=== PATIENT | male | born 1975 | race Caucasian/White ===

== ENCOUNTER 2017-09-02 14:54 | Observation (INO) | payer OTHER ==
[2017-09-02] MEDS ORDERED: IBUPROFEN 600 MG TABLET (FP) PO ONE ×2 (15:57→16:13)
--- NOTE | 2017-09-02 16:03 | PDOC ---
History of Present Illness - General Chief Complaint: Chest Pain Stated Complaint: CHEST PAIN Time Seen by Provider: 09/02/17 15:40 History Source: Patient Exam Limitations: No Limitations - History of Present Illness Initial Comments: 09/02/17 15:59 The patient is a 42M with no PMH (does not f/u with a PCP) who presents to the ER with complaints of chest pain. The patient states that he's had 2 weeks of intermittent, atraumatic, CP which is sharp in nature not changed by foods, breathing, or positioning. The pain is located in his L anterior chest, nonradiating. He denies incarceration, recent travel, and sick contacts. He admits to a cough, SOB when laying down at night, night sweats, and chills. He denies fever, abdominal pain. Past History - Past Medical History Allergies/Adverse Reactions: Allergies Allergy/AdvReac Type Severity Reaction Status Date / Time No Known Allergies Allergy Verified 09/02/17 15:10 Home Medications: Ambulatory Orders NK [No Known Home Medication] 09/02/17 COPD: No Other medical history: Pt denies - Suicide/Smoking/Psychosocial Hx Smoking History: Current every day smoker Have you smoked in the past 12 months: Yes Number of Cigarettes Smoked Daily: 10 Information on smoking cessation initiated: No Hx Alcohol Use: No Drug/Substance Use Hx: No Substance Use Type: Alcohol Review of Systems - Review of Systems Able to Perform ROS?: Yes Comments:: 09/02/17 16:08 GENERAL/CONSTITUTIONAL: Positive for chills and night sweats. No fevers. No weakness. HEAD, EYES, EARS, NOSE AND THROAT: No change in vision. No ear pain or discharge. No sore throat. CARDIOVASCULAR: Positive for chest pain. No palpitations or lightheadedness. RESPIRATORY: Positive for cough and PND. No cough, wheezing, or hemoptysis. GASTROINTESTINAL: Positive for mild nausea. No vomiting, diarrhea, constipation , or abdominal pain. GENITOURINARY: No dysuria, frequency, hematuria, or change in urination. MUSCULOSKELETAL: No joint or muscle swelling or pain. No neck or back pain. SKIN: No rash or lesions. NEUROLOGIC: No headache, numbness, tingling, weakness, loss of consciousness, or change in strength/sensation. ENDOCRINE: No increased thirst. No abnormal weight change. HEMATOLOGIC/LYMPHATIC: No anemia, easy bleeding, or history of blood clots. ALLERGIC/IMMUNOLOGIC: No hives or skin allergy. Is the patient limited Arabic proficient: No *Physical Exam - Vital Signs Last Vital Signs Temp Pulse Resp BP Pulse Ox 98.4 F 55 L 18 149/91 99 09/02/17 15:10 09/02/17 15:10 09/02/17 15:10 09/02/17 15:10 09/02/17 15:10 - Physical Exam Comments: 09/02/17 16:09 GENERAL: Well developed, well nourished. Awake and alert. No acute distress. HEENT: Normocephalic, atraumatic. Hearing grossly normal. Moist mucous membranes. PERRLA, EOMI. No conjunctival pallor. Sclera are non-icteric. NECK: Supple. Full ROM. No JVD. CARDIOVASCULAR: TTP over L anterior chest. Regular rate and rhythm. No murmurs, rubs, or gallops. PULMONARY: No evidence of respiratory distress. Lungs clear to auscultation bilaterally. No wheezing, rales or rhonchi. ABDOMINAL: Soft. Non-tender. Non-distended. No rebound or guarding. GENITOURINARY: No CVA tenderness bilaterally. MUSCULOSKELETAL: Normal range of motion at all joints. No bony deformities or tenderness. EXTREMITIES: No cyanosis. No clubbing. No edema. No calf tenderness or swelling. SKIN: Warm and dry. Normal capillary refill. No rashes. No jaundice. NEUROLOGICAL: Alert, awake, appropriate. Cranial nerves 2-12 intact. Normal speech. Gait is normal without ataxia. PSYCHIATRIC: Cooperative. Good eye contact. Appropriate mood and affect. Heart Score/ECG Review #1 General ECG Interpretation: Sinus Rhythm, Normal Rate, Normal Intervals, No acute ischemic changes Compared to previous ECG there are: Previous ECG unavail 09/02/17 16:10 NSR vent rate 60 WI 178 QRS 92 QTc 424 No STD or GARY No signs of acute ischemia S waves noted to be exaggerated in V2 and V3 ED Treatment Course - LABORATORY CBC & Chemistry Diagram: 09/02/17 16:05 09/02/17 16:05 - RADIOLOGY Radiology Studies Ordered: Category Date Time Status CHEST PA & LAT [RAD] Stat Radiology 09/02/17 15:57 Ordered Medical Decision Making - Medical Decision Making 07/19/18 16:11 The patient is a 42M with no PMH, does not have a PMD, who presents to the ER with reproducible CP, night sweats, and chills. He denies any sick contacts but admits to a cough and malaise. I am concerned about an infectious process. Will r/o ACS with ekg and troponin. Pending labs and imaging. 09/02/17 17:39 I have endorsed the pt to Dr. Sandy for admission. Will place order for CT chest. Trop negative. CBC and CMP WNL. *DC/Admit/Observation/Transfer Diagnosis at time of Disposition: Chest pain Qualifiers: Chest pain type: other chest pain Qualified Code(s): R07.89 - Other chest pain ; R07.8 - Other chest pain - Discharge Dispostion Condition at time of disposition: Guarded Decision to Admit order: Yes - Referrals - Patient Instructions - Post Discharge Activity
--- NOTE | 2017-09-02 16:16 | PDOC ---
Attending Attestation - HPI HPI: 09/02/17 17:29 The patient is a 42 year old male with no significant past medical history who presents to the ED complaining of approximately 2 weeks of L sided chest pain that is sharp, intermittent, and associated with shortness of breath, nausea, and diaphoresis. Denies fever or chills. Denies headache, blurred vision, numbness or tingling. Does not follow with PMD - Physicial Exam PE: 09/02/17 17:31 Constitutional: Awake, alert, oriented. No acute distress. Head: Normocephalic. Atraumatic Eyes: PERRL. EOMI. Conjunctivae are not pale. ENT: Mucous membranes are moist and intact. Posterior pharynx without exudates or erythema. Uvula midline. Neck: Supple. Full ROM. No lymphadenopathy. Cardiovascular: Regular rate. Regular rhythm. S1, S2 regular. Distal pulses are 2+ and symmetric. Pulmonary/Chest: No evidence of respiratory distress. Clear to auscultation bilaterally No wheezing, rales or rhonchi. Abdominal: Soft and non-distended. There is no tenderness. No rebound, guarding or rigidity. No organomegaly. No palpable masses. Good bowel sounds. Back: No CVA tenderness. Musculoskeletal: No edema. No cyanosis. No clubbing. Full range of motion in all extremities. Nocalf tenderness. Radial/pedal pulses are intact and 2+ bilaterally Skin: Skin is warm and dry. No petechiae. No purpura. Neurological: Alert and oriented to person, place, and time. Cranial nerves II -XII are grossly intact. Normal speech. Strength is grossly symmetric. No sensory deficits. Psychiatric: Good eye contact. Normal interaction, affect and behavior. Documentation prepared by Kellie Torres, acting as medical facilities section director for Tara Ruth DO. <Kellie Torres - Last Filed: 09/02/17 17:29> - Resident Resident Name: Jase Valenzuela - ED Attending Attestation I have performed the following: I have examined & evaluated the patient, The case was reviewed & discussed with the resident, I agree w/resident's findings & plan, Exceptions are as noted - Medical Decision Making 09/02/17 16:16 I, Dr. Tara Ruth DO, attest that this document has been prepared under my direction and personally reviewed by me in its entirety. I further attest, that it accurately reflects all work, treatment, procedures and medical decision -making performed by me. 09/02/17 17:43 a/p: 42yo male with intermittent cp assoc with sob/diaphoresis/nausea -concerning for acs -will send labs -trop -ekg -asa -also with nonproductive cough -no pleuritic component -will keep in obs overnight 09/02/17 19:55 resident discussed case with christianne who accepts pt to service <Tara uRth - Last Filed: 09/02/17 19:56> Heart Score/ECG Review - ECG Intrepretation Comment:: 09/02/17 16:24 sinus at 62, nl axis, nl interval, no acute st/t wave findings <Tara Ruth - Last Filed: 09/02/17 19:56>
[2017-09-02 16:21] LABS: BASO % 0.9 % (0-2.0); EOS % 0.9 % (0-4.5); HEMOGLOBIN 14.8 GM/dL (11.7-16.9); LYMPH % 20.2 % (8-40); MCH 32.7 pg (25.7-33.7); MCHC 35.2 g/dl (32.0-35.9); MEAN CELL VOLUME 92.9 fl (80-96); MEAN PLT VOLUME 9.1 fl (7.5-11.1); MONO % 6.7 % (3.8-10.2); NEUT % 71.3 % (42.8-82.8); PLATELET COUNT 194 K/MM3 (134-434); RBC 4.52 M/mm3 (4.00-5.60); RDW 13.2 % (11.9-15.9)
[2017-09-02 16:26] LABS: INR 0.97 (0.82-1.09)
[2017-09-02 16:36] LABS: ALBUMIN 4.2 g/dl (3.4-5.0); ANION GAP 9 (8-16); BILIRUBIN,TOTAL 1.4 mg/dL (0.2-1.0); BLOOD UREA NITROGEN 12 mg/dL (7-18); CALCIUM 8.9 mg/dL (8.5-10.1); CHLORIDE 108 mmol/L (98-107); CO2 24 mmol/L (21-32); CREATININE 0.8 mg/dL (0.7-1.3); GLUCOSE,RANDOM 91 mg/dL (74-106); POTASSIUM 3.9 mmol/L (3.5-5.1); SGOT/AST 40 U/L (15-37); SGPT/ALT 55 U/L (12-78); SODIUM 141 mmol/L (136-145)
[2017-09-02 16:38] LABS: ALK PHOS 99 U/L (45-117)
[2017-09-02] MEDS ORDERED: ASPIRIN COATED 81 MG TABLET.EC PO ONE (17:28)
--- NOTE | 2017-09-02 18:22 | HP ---
Admitting History and Physical - Primary Care Physician PCP: None - Admission Chief Complaint: Chest pain History of Present Illness: 42 yo M w/ no significant medical history p/w chest pain x 2 weeks. Pain is located upper L chest, reproducible, worse with sitting up, 8/10, sharp, non- radiating, intermittent, a/w intermittent non-productive cough and shortness of breath both exertional and w/ the pain. Denies sweating, dizziness, focal weakness, abd pain, headache, n/v, fever, chills, weight loss, night sweat, sick contact, travel. History Source: Patient Limitations to Obtaining History: No Limitations - Smoking History Smoking history: Current every day smoker Have you smoked in the past 12 months: Yes Aproximately how many cigarettes per day: 10 - Alcohol/Substance Use Hx Alcohol Use: No Home Medications - Allergies Allergies/Adverse Reactions: Allergies Allergy/AdvReac Type Severity Reaction Status Date / Time No Known Allergies Allergy Verified 09/02/17 15:10 - Home Medications Home Medications: Ambulatory Orders NK [No Known Home Medication] 09/02/17 Review of Systems - Review of Systems Constitutional: denies: Chills, Fever, Loss of Appetite, Night Sweats, Unintentional Wgt. Loss, Weakness HENT: reports: No Symptoms Neck: reports: No Symptoms Cardiovascular: reports: Chest Pain, Shortness of Breath. denies: Palpitations Respiratory: reports: Cough, SOB on Exertion Gastrointestinal: reports: No Symptoms Genitourinary: reports: No Symptoms Musculoskeletal: reports: No Symptoms Integumentary: reports: No Symptoms Neurological: reports: No Symptoms Endocrine: reports: No Symptoms Hematology/Lymphatic: reports: No Symptoms Psychiatric: reports: No Symptoms Physical Examination Vital Signs: Vital Signs Temperature 98.4 F 09/02/17 15:10 Pulse Rate 55 L 09/02/17 15:10 Respiratory Rate 18 09/02/17 15:10 Blood Pressure 149/91 09/02/17 15:10 O2 Sat by Pulse Oximetry (%) 99 09/02/17 15:10 Constitutional: Yes: Well Nourished, No Distress, Calm Eyes: Yes: Conjunctiva Clear, EOM Intact HENT: Yes: Atraumatic, Normocephalic Neck: Yes: Supple, Trachea Midline Cardiovascular: Yes: Regular Rate and Rhythm, S1, S2. No: Bruit, JVD, Gallop, Murmur, Rub Respiratory: Yes: CTA Bilaterally Gastrointestinal: Yes: Normal Bowel Sounds, Soft. No: Distention, Tenderness Extremities: No: Erythema Edema: No Peripheral Pulses WNL: Yes Neurological: Yes: Alert, Oriented, Cran Nerves II-XII Intact Labs: CBC, BMP 09/02/17 16:05 09/02/17 16:05 Imaging - Results X-ray: Report Reviewed, Image Reviewed Assessment/Plan 42 yo M admitted for atypical chest pain Atypical chest pain, r/o ACS - Heart score 1, cardiac cause less likely - negative trop x 1, will trend - normal EKG, will repeat - ECHO dvt ppx: lovenox dispo: d/c if ECHO negative Blas Bowen PGY3 [phone] Visit type - Emergency Visit Emergency Visit: Yes Care time: The patient presented to the Emergency Department on the above date and was hospitalized for further evaluation of their emergent condition. - New Patient This patient is new to me today: Yes Date on this admission: 09/02/17 - Critical Care Critical Care patient: No Hospitalist Screening - Colonoscopy Questionnaire Colonoscopy Questionnaire: Colonoscopy Questionnaire - Patient: 50 - 75 years old and never had a screening colonoscopy: Unknown History of colon or rectal polyps, or CA: Unknown History of IBD, Crohn's disease or UC: Unknown History of abdominal radiation therapy as a child: Unknown - Relative: 1 with colon or rectal CA, or polyps at age 60 or younger: Unknown Colon or rectal CA diagnosed at age 45 or younger: Unknown Multiple relatives with colon or rectal CA: Unknown - Outcome: Screening Result: Negative Screen
[2017-09-02] MEDS ORDERED: ASPIRIN COATED 81 MG TABLET.EC ONE ×2 (18:27→18:28)
--- NOTE | 2017-09-02 18:30 | PN ---
Teaching Attending Note Name of Resident: Blas Bowen ATTENDING PHYSICIAN STATEMENT I saw and evaluated the patient. I reviewed the resident's note and discussed the case with the resident. I agree with the resident's findings and plan as documented with exceptions below. SUBJECTIVE: 42 yom from [place], immigrated 2 years ago, not seen a doctor since, comes with 15 days of left sided chest pain, tender to touch, squeezing, constant, waxing and waning, with no clear exacerbating or relieving factors, but occasionally worse when unable to 'catch his breath'. No fevers, chills, radiation to arm, jaw or neck. Denies any cough, hemoptysis, weight loss (rather has gained weight ), night sweats, exertional chest pain or dyspnea, recent travel, family history of clots or CAD. Currently unchanged symptoms, reports hurts when presses on chest on but no change with movements. 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 12 point ROS done, neg otherwise. OBJECTIVE: Vital Signs Period Temp Pulse Resp BP Sys/Dinh Pulse Ox Last 24 Hr 98.4 F 55 18 149/91 99 Intake & Output 08/30/17 08/31/17 09/01/17 09/02/17 23:59 23:59 23:59 23:59 Weight 185 lb GENERAL: Awake, alert, and fully oriented, in no acute distress. HEAD: Normal with no signs of trauma. EYES: Pupils equal, round and reactive to light, extraocular movements intact, sclera anicteric, conjunctiva clear. No lid lag. EARS, NOSE, THROAT: Ears normal, nares patent, oropharynx clear without exudates. Moist mucous membranes. NECK: Normal range of motion, supple without lymphadenopathy, JVD, or masses. LUNGS: Breath sounds equal, clear to auscultation bilaterally. No wheezes, and no crackles. No accessory muscle use. Left sided chest wall tenderness with no swelling/erythema/crepitus HEART: Regular rate and rhythm, normal S1 and S2 without murmur, rub or gallop. ABDOMEN: Soft, nontender, not distended, normoactive bowel sounds, no guarding, no rebound, no masses. No voluntary or involuntary guarding or rigidity. MUSCULOSKELETAL: Normal range of motion at all joints. No bony deformities or tenderness. No CVA tenderness. UPPER EXTREMITIES: 2+ pulses, warm, well-perfused. No cyanosis. No clubbing. No peripheral edema. LOWER EXTREMITIES: 2+ pulses, warm, well-perfused. No calf tenderness. No peripheral edema. NEUROLOGICAL: Cranial nerves II-XII intact. Normal speech. Normal gait. PSYCHIATRIC: Cooperative. Good eye contact. Appropriate mood and affect. SKIN: Warm, dry, normal turgor, no rashes or lesions noted, normal capillary refill. Active Medications Enoxaparin Sodium (Lovenox -) 40 mg SQ DAILY IDANIA Laboratory Results - last 24 hr 09/02/17 09/02/17 09/02/17 16:05 16:05 16:05 WBC 6.0 RBC 4.52 Hgb 14.8 Hct 42.0 MCV 92.9 MCH 32.7 MCHC 35.2 RDW 13.2 Plt Count 194 MPV 9.1 Absolute Neuts (auto) 4.3 Neutrophils % 71.3 Lymphocytes % 20.2 Monocytes % 6.7 Eosinophils % 0.9 Basophils % 0.9 Nucleated RBC % 0 PT with INR 11.00 INR 0.97 Sodium 141 Potassium 3.9 Chloride 108 H Carbon Dioxide 24 Anion Gap 9 BUN 12 Creatinine 0.8 Creat Clearance w eGFR > 60 Random Glucose 91 Calcium 8.9 Total Bilirubin 1.4 H AST 40 H ALT 55 Alkaline Phosphatase 99 Creatine Kinase 273 Creatine Kinase Index 1.2 CK-MB (CK-2) 3.34 Troponin I < 0.02 B-Natriuretic Peptide Total Protein 8.0 Albumin 4.2 09/02/17 16:05 WBC RBC Hgb Hct MCV MCH MCHC RDW Plt Count MPV Absolute Neuts (auto) Neutrophils % Lymphocytes % Monocytes % Eosinophils % Basophils % Nucleated RBC % PT with INR INR Sodium Potassium Chloride Carbon Dioxide Anion Gap BUN Creatinine Creat Clearance w eGFR Random Glucose Calcium Total Bilirubin AST ALT Alkaline Phosphatase Creatine Kinase Creatine Kinase Index CK-MB (CK-2) Troponin I B-Natriuretic Peptide 6.62 Total Protein Albumin EKG NSR, Q in III CXR no acute process ASSESSMENT AND PLAN: 42 yom with atypical left sided chest pain. -Atypical left sided chest pain, musculoskeletal high on differential given tenderness to touch and occupation involving lifting heavy weights, low suspicion for ACS, unlikely PE given character of pain and lack of tachycardia/ hypoxia/pleuritic symptoms or risk factors, no clincal markers or concerns for TB or infectious process Plan; telemetry, repeat trop. 2D echo. CT chest to assess pulmonary parenchyma, additional w/u if any concerns noted. Trial with Tylenol/NSAIDs Lipid panel, A1c, DVTPPX, low risk dispo d/c in 24 hours if w/u unrevealing and no concerns. Admit to obs. Plan discussed with patient in detail, all questions answered. patient in agreement with plan. Total admit time 55 min.
[2017-09-02] MEDS ORDERED: IBUPROFEN 400 MG TABLET (FP) PO PRN (18:36)
[2017-09-02] MEDS ORDERED: ACETAMINOPHEN 325 MG TABLET (FP) PO PRN (18:40)
[2017-09-02 20:39] VITALS: BMI 31.0
[2017-09-03 06:26] LABS: BASO % 0.8 % (0-2.0); EOS % 2.6 % (0-4.5); HEMATOCRIT 41.4 % (35.4-49); HEMOGLOBIN 14.8 GM/dL (11.7-16.9); MCH 33.2 pg (25.7-33.7); MCHC 35.7 g/dl (32.0-35.9); MEAN PLT VOLUME 8.9 fl (7.5-11.1); MONO % 7.9 % (3.8-10.2); NEUT % 59.7 % (42.8-82.8); PLATELET COUNT 184 K/MM3 (134-434); RBC 4.46 M/mm3 (4.00-5.60); RDW 13.1 % (11.9-15.9); WHITE BLOOD COUNT 5.6 K/mm3 (4.0-10.0)
[2017-09-03 07:04] LABS: ANION GAP 9 (8-16); BLOOD UREA NITROGEN 14 mg/dL (7-18); CALCIUM 8.5 mg/dL (8.5-10.1); CHLORIDE 108 mmol/L (98-107); CO2 25 mmol/L (21-32); CREATININE 0.7 mg/dL (0.7-1.3); GLUCOSE,RANDOM 80 mg/dL (74-106); POTASSIUM 3.8 mmol/L (3.5-5.1); SODIUM 142 mmol/L (136-145)
[2017-09-03 07:06] LABS: MAGNESIUM 2.3 mg/dL (1.8-2.4); PHOSPHOROUS 3.6 mg/dL (2.5-4.9)
[2017-09-03 07:33] LABS: ALBUMIN 3.7 g/dl (3.4-5.0); BILIRUBIN,DIRECT 0.4 mg/dL (0.0-0.2); BILIRUBIN,TOTAL 1.7 mg/dL (0.2-1.0); TOT PROT 7.1 g/dl (6.4-8.2)
[2017-09-03] MEDS ORDERED: ENOXAPARIN NA (PORCINE) 40 MG/0.4 ML DISP.SYRIN SQ SCH (10:00)
--- NOTE | 2017-09-03 11:58 | ECHO ---
Name: MISHA SORIA Study Date: 09/03/2017 10:52 AM Age: 42 yrs Reason For Study: chest pain Height: 66 in Weight: 185 lb BSA IVSd 1.1cm Ao root diam 3.4cm LVIDd 5.2cm LA dimension 3.9c m LVIDs 3.2cm LVPWd 0.82cm EDVPastora) 128.9ml TAPSE 1.5cm ESV(Kathe) 40.3ml RV S Kaushik 11.7cm/s ec MV E max kaushik 53.3cm/sec MR max kaushik 155.2cm /sec MV A max kaushik 58.7cm/sec MR max PG 10.6mmH g MV E/A 0.91 MV dec time 0.28sec TR max kaushik 199.9cm/sec Med Peak E' Kaushik 6.5 cm/sec TR max PG 16.1mmHg Med E/e' 8.2 Lat Peak E' Vel10.5c m/sec Lat E/e'5.1
--- NOTE | 2017-09-03 12:11 | EKG ---
Test Reason : Blood Pressure : / mmHG Vent. Rate : 062 BPM Atrial Rate : 062 BPM P-R Int : 178 ms QRS Dur : 092 ms QT Int : 418 ms P-R-T Axes : 060 031 036 degrees QTc Int : 424 ms POOR DATA QUALITY, INTERPRETATION MAY BE ADVERSELY AFFECTED NORMAL SINUS RHYTHM NORMAL ECG NO PREVIOUS ECGS AVAILABLE Confirmed by MARIA DEL CARMEN ALVARADO MD ([id number]) on 09/03/2017 12:11:24 PM Referred By: Confirmed By:MARIA DEL CARMEN ALVARADO MD
[2017-09-03] MEDS ORDERED: PANTOPRAZOLE 20 MG TABLET (FP) PO PRN (13:45)
[2017-09-03 14:17] VITALS: BP 116/72; PULSE 57; TEMP 97.7
--- NOTE | 2017-09-03 14:59 | DS ---
Physical Exam: SUBJECTIVE: Patient seen and examined. No acute events overnight. Pt. had no complaints. OBJECTIVE: Vital Signs Period Temp Pulse Resp BP Sys/Dinh Pulse Ox Last 24 Hr 97.7 F-98.4 F 54-62 18-18 112-149/60-95 97-99 PHYSICAL EXAM GENERAL: The patient is awake, alert, and fully oriented, in no acute distress. LUNGS: Breath sounds equal, clear to auscultation bilaterally, no wheezes, no crackles, no accessory muscle use. HEART: Regular rate and rhythm, S1, S2 without murmur, rub or gallop. ABDOMEN: Soft, nontender, nondistended, normoactive bowel sounds, no guarding EXTREMITIES: warm, well-perfused, no edema. SKIN: Warm, dry, normal turgor LABS Laboratory Results - last 24 hr 09/02/17 09/02/17 09/02/17 16:05 16:05 16:05 WBC 6.0 RBC 4.52 Hgb 14.8 Hct 42.0 MCV 92.9 MCH 32.7 MCHC 35.2 RDW 13.2 Plt Count 194 MPV 9.1 Absolute Neuts (auto) 4.3 Neutrophils % 71.3 Lymphocytes % 20.2 Monocytes % 6.7 Eosinophils % 0.9 Basophils % 0.9 Nucleated RBC % 0 PT with INR 11.00 INR 0.97 Sodium 141 Potassium 3.9 Chloride 108 H Carbon Dioxide 24 Anion Gap 9 BUN 12 Creatinine 0.8 Creat Clearance w eGFR > 60 Random Glucose 91 Hemoglobin A1c % Calcium 8.9 Phosphorus Magnesium Total Bilirubin 1.4 H Direct Bilirubin AST 40 H ALT 55 Alkaline Phosphatase 99 Creatine Kinase 273 Creatine Kinase Index 1.2 CK-MB (CK-2) 3.34 Troponin I < 0.02 B-Natriuretic Peptide Total Protein 8.0 Albumin 4.2 Triglycerides Cholesterol Total LDL Cholesterol HDL Cholesterol 09/02/17 09/02/17 09/03/17 16:05 20:30 05:30 WBC RBC Hgb Hct MCV MCH MCHC RDW Plt Count MPV Absolute Neuts (auto) Neutrophils % Lymphocytes % Monocytes % Eosinophils % Basophils % Nucleated RBC % PT with INR INR Sodium 142 Potassium 3.8 Chloride 108 H Carbon Dioxide 25 Anion Gap 9 BUN 14 Creatinine 0.7 Creat Clearance w eGFR > 60 Random Glucose 80 Hemoglobin A1c % Calcium 8.5 Phosphorus Magnesium Total Bilirubin Direct Bilirubin AST ALT Alkaline Phosphatase Creatine Kinase Creatine Kinase Index CK-MB (CK-2) Troponin I < 0.02 < 0.02 B-Natriuretic Peptide 6.62 Total Protein Albumin Triglycerides Cholesterol Total LDL Cholesterol HDL Cholesterol 09/03/17 09/03/17 09/03/17 05:30 05:30 05:30 WBC 5.6 RBC 4.46 Hgb 14.8 Hct 41.4 MCV 93.0 MCH 33.2 MCHC 35.7 RDW 13.1 Plt Count 184 MPV 8.9 Absolute Neuts (auto) 3.4 Neutrophils % 59.7 Lymphocytes % 29.0 D Monocytes % 7.9 Eosinophils % 2.6 D Basophils % 0.8 Nucleated RBC % 0 PT with INR INR Sodium Potassium Chloride Carbon Dioxide Anion Gap BUN Creatinine Creat Clearance w eGFR Random Glucose Hemoglobin A1c % 5.1 Calcium Phosphorus 3.6 Magnesium 2.3 Total Bilirubin Direct Bilirubin AST ALT Alkaline Phosphatase Creatine Kinase Creatine Kinase Index CK-MB (CK-2) Troponin I B-Natriuretic Peptide Total Protein Albumin Triglycerides 118 Cholesterol 204 H Total LDL Cholesterol 133 H HDL Cholesterol 64 H 09/03/17 05:30 WBC RBC Hgb Hct MCV MCH MCHC RDW Plt Count MPV Absolute Neuts (auto) Neutrophils % Lymphocytes % Monocytes % Eosinophils % Basophils % Nucleated RBC % PT with INR INR Sodium Potassium Chloride Carbon Dioxide Anion Gap BUN Creatinine Creat Clearance w eGFR Random Glucose Hemoglobin A1c % Calcium Phosphorus Magnesium Total Bilirubin 1.7 H Direct Bilirubin 0.4 H AST 50 H D ALT 63 Alkaline Phosphatase 84 D Creatine Kinase Creatine Kinase Index CK-MB (CK-2) Troponin I B-Natriuretic Peptide Total Protein 7.1 Albumin 3.7 Triglycerides Cholesterol Total LDL Cholesterol HDL Cholesterol HOSPITAL COURSE: Date of Admission:09/02/17 Date of Discharge: 09/03/17 Pre-hospital: 42 yo M w/ no significant medical history p/w chest pain x 2 weeks. Pain is located upper L chest, reproducible, worse with sitting up, 8/10 , sharp, non-radiating, intermittent, a/w intermittent non-productive cough and shortness of breath both exertional and w/ the pain. Denies sweating, dizziness , focal weakness, abd pain, headache, n/v, fever, chills, weight loss, night sweat, sick contact, travel. Hospital: Pt. was given Tylenol for the reproducible chest pain. Pt. admits feeling better. Pt. admits to drinking 15 beers a day, advised to discontinue alcohol abuse. Pt. was given information to seek outpatient help at a clinic for substance abuse as well as referred for a primary care physician. Pt. was cleared for discharge. Minutes to complete discharge: 31 Discharge Summary Reason For Visit: CHEST PAIN Current Active Problems Chest pain (Acute) Condition: Good - Instructions Diet, Activity, Other Instructions: You came in with chest pain You had an echocardiogram (ultrasound of your heart) done. It was non concerning. We did tests on you that did not show you had a heart attack You may take tylenol for pain as needed Do not take more than 3g of tylenol Recommend alcohol cessation. If interested, you can discuss with your doctor for detox resources. Call medical clinic on discharge to schedule follow up: [address] [place] [address] Ph: [phone] Please return to the ER if you feel chest pain or shortness of breath or any new concerns. Referrals: Raul Juarez MD [Staff Physician] - 1 Week Disposition: HOME - Home Medications Comprehensive Discharge Medication List: Ambulatory Orders Acetaminophen [Tylenol .Regular Strength -] 650 mg PO Q6H PRN tablet 09/03/17 This patient is new to me today: No Emergency Visit: Yes ED Registration Date: 09/02/17 Care time: The patient presented to the Emergency Department on the above date and was hospitalized for further evaluation of their emergent condition. Critical Care patient: No - Discharge Referral Referred to [facility] No
--- NOTE | 2017-09-03 15:01 | PN ---
Teaching Attending Note Name of Resident: Will Owusu ATTENDING PHYSICIAN STATEMENT I saw and evaluated the patient. I reviewed the resident's note and discussed the case with the resident. I agree with the resident's findings and plan as documented with exceptions below. SUBJECTIVE: Patient seen and examined. some left chest wall pain, improved with tylenol, no new concerns. OBJECTIVE: Vital Signs Period Temp Pulse Resp BP Sys/Dinh Pulse Ox Last 24 Hr 97.7 F-98.4 F 54-62 18-18 112-149/60-95 97-99 Intake & Output 08/31/17 09/01/17 09/02/17 09/03/17 23:59 23:59 23:59 23:59 Intake Total 180 450 Balance 180 450 Weight 192 lb 3.2 oz General: sitting in bed in no acute distress Chest: CTAB, no rales or wheezing, left lower chest wall tenderness, improved exam Home Medications Medication Instructions Recorded RX: Acetaminophen [Tylenol 650 mg PO Q6H PRN tablet 09/03/17 .Regular Strength -] Laboratory Results - last 24 hr 09/02/17 09/02/17 09/02/17 16:05 16:05 16:05 WBC 6.0 RBC 4.52 Hgb 14.8 Hct 42.0 MCV 92.9 MCH 32.7 MCHC 35.2 RDW 13.2 Plt Count 194 MPV 9.1 Absolute Neuts (auto) 4.3 Neutrophils % 71.3 Lymphocytes % 20.2 Monocytes % 6.7 Eosinophils % 0.9 Basophils % 0.9 Nucleated RBC % 0 PT with INR 11.00 INR 0.97 Sodium 141 Potassium 3.9 Chloride 108 H Carbon Dioxide 24 Anion Gap 9 BUN 12 Creatinine 0.8 Creat Clearance w eGFR > 60 Random Glucose 91 Hemoglobin A1c % Calcium 8.9 Phosphorus Magnesium Total Bilirubin 1.4 H Direct Bilirubin AST 40 H ALT 55 Alkaline Phosphatase 99 Creatine Kinase 273 Creatine Kinase Index 1.2 CK-MB (CK-2) 3.34 Troponin I < 0.02 B-Natriuretic Peptide Total Protein 8.0 Albumin 4.2 Triglycerides Cholesterol Total LDL Cholesterol HDL Cholesterol 09/02/17 09/02/17 09/03/17 16:05 20:30 05:30 WBC RBC Hgb Hct MCV MCH MCHC RDW Plt Count MPV Absolute Neuts (auto) Neutrophils % Lymphocytes % Monocytes % Eosinophils % Basophils % Nucleated RBC % PT with INR INR Sodium 142 Potassium 3.8 Chloride 108 H Carbon Dioxide 25 Anion Gap 9 BUN 14 Creatinine 0.7 Creat Clearance w eGFR > 60 Random Glucose 80 Hemoglobin A1c % Calcium 8.5 Phosphorus Magnesium Total Bilirubin Direct Bilirubin AST ALT Alkaline Phosphatase Creatine Kinase Creatine Kinase Index CK-MB (CK-2) Troponin I < 0.02 < 0.02 B-Natriuretic Peptide 6.62 Total Protein Albumin Triglycerides Cholesterol Total LDL Cholesterol HDL Cholesterol 09/03/17 09/03/17 09/03/17 05:30 05:30 05:30 WBC 5.6 RBC 4.46 Hgb 14.8 Hct 41.4 MCV 93.0 MCH 33.2 MCHC 35.7 RDW 13.1 Plt Count 184 MPV 8.9 Absolute Neuts (auto) 3.4 Neutrophils % 59.7 Lymphocytes % 29.0 D Monocytes % 7.9 Eosinophils % 2.6 D Basophils % 0.8 Nucleated RBC % 0 PT with INR INR Sodium Potassium Chloride Carbon Dioxide Anion Gap BUN Creatinine Creat Clearance w eGFR Random Glucose Hemoglobin A1c % 5.1 Calcium Phosphorus 3.6 Magnesium 2.3 Total Bilirubin Direct Bilirubin AST ALT Alkaline Phosphatase Creatine Kinase Creatine Kinase Index CK-MB (CK-2) Troponin I B-Natriuretic Peptide Total Protein Albumin Triglycerides 118 Cholesterol 204 H Total LDL Cholesterol 133 H HDL Cholesterol 64 H 09/03/17 05:30 WBC RBC Hgb Hct MCV MCH MCHC RDW Plt Count MPV Absolute Neuts (auto) Neutrophils % Lymphocytes % Monocytes % Eosinophils % Basophils % Nucleated RBC % PT with INR INR Sodium Potassium Chloride Carbon Dioxide Anion Gap BUN Creatinine Creat Clearance w eGFR Random Glucose Hemoglobin A1c % Calcium Phosphorus Magnesium Total Bilirubin 1.7 H Direct Bilirubin 0.4 H AST 50 H D ALT 63 Alkaline Phosphatase 84 D Creatine Kinase Creatine Kinase Index CK-MB (CK-2) Troponin I B-Natriuretic Peptide Total Protein 7.1 Albumin 3.7 Triglycerides Cholesterol Total LDL Cholesterol HDL Cholesterol CT chest noted 2D echo results noted Telemetry PVCs ASSESSMENT AND PLAN: 42 yom with atypical left sided chest pain. -Atypical left sided chest pain, musculoskeletal high on differential given tenderness to touch and occupation involving lifting heavy weights, -ETOH use, ?dependence Plan:. ACS ruled out, improved with tylenol and tender to touch. CT chest/2D echo reviewed ETOH cessation counseling provided. d/c home today with outpatient follow up,medical clinic information provided. Plan discussed with patient in detail, all questions answered.
== END 2017-09-03 16:10 | disposition home or self-care (01) ==
LOC: JER 14:54 → JERBED 17:39 → J4W 20:11
PROVIDERS: ADMIT Hospitalist; ATTEND Hospitalist
PROC: 3E013GC Introduction of Other Therapeutic Substance into Subcutaneous Tissue, Percutaneous Approach (ICD-10-PCS; principal; 2017-09-02)
DX: R07.89 Other chest pain (principal); F17.210 Nicotine dependence, cigarettes, uncomplicated
CPT/HCPCS: 36415; 71046-TC-FY; 71250-TC; 80048; 80053; 80061; 80076; 82550; 82553; 83036; 83721; 83735; 83880; 84100; 84484; 85025; 85610; 93005; 93010; 93306-TC; 96372; 99285-25; G0378